=== PATIENT | female | born 1940 | race Caucasian/White ===

== ENCOUNTER 2024-05-06 12:21 | Inpatient (IN) | payer MEDICARE, BC, SELFPAY ==
[2024-05-03 17:43] VITALS: BP 116/51
[2024-05-03] MEDS: TYLENOL SUSPENSION 650 MG PO (17:52)
[2024-05-03 18:09] LABS: % Basophils 0.2 % (0-2); % Immature Granulocytes 0.6 % (0-0.5); % Lymphocytes 5.7 % (20.5-51.1); % Monocytes 4.7 % (1.7-9.3); % Neutrophils 88.8 % (42.2-75.2); Absolute Immature Granulocytes 0.1 10^3/uL (0-0.05); Absolute Lymphocytes 0.6 10^3/uL (1.2-3.4); Absolute Monocytes 0.5 10^3/uL (0.1-0.6); Absolute Neutrophils 8.9 10^3/uL (1.4-6.5); Hematocrit 37.4 % (37.0-47.0); Mean Corp Hgb Conc. 32.1 g/dL (33.0-37.0); Mean Corpuscular Hgb 29.1 pg (27.0-31.0); Mean Corpuscular Volume 90.6 fL (81.0-99.0); Mean Platelet Volume 10.4 fL (7.4-10.4); Nucleated Red Blood Cells % 0 %; Platelet Count 211 10^3/uL (130-400); Red Blood Cell Count 4.13 10^6/uL (4.20-5.40); Red Cell Dist. Width 13.5 % (11.5-14.5)
[2024-05-03 18:24] LABS: ALT (SGPT) 21 U/L (0-35); AST (SGOT) 33 U/L (14-36); Alkaline Phosphatase 62 U/L (38-126); Blood Urea Nitrogen 24 mg/dl (7-17); Calcium 9.3 mg/dl (8.4-10.2); Carbon Dioxide 26 mmol/L (22-30); Chloride 102 mmol/L (98-107); Glucose 152 mg/dl (70-99); Potassium 4.8 mmol/L (3.5-5.1); Sodium 137 mmol/L (135-145); Total Bilirubin 0.5 mg/dl (0.2-1.3); Total Protein 6.8 g/dl (6.3-8.2); eGFR > 60.00
[2024-05-03 18:36] LABS: COVID-19 Antigen Negative (Negative)
[2024-05-03 20:29] VITALS: BP 107/52
--- NOTE | 2024-05-03 20:49 | ED.GENMED ---
History of Present Illness
General
Chief Complaint: Fever
Source: family (Daughter)
Exam Limitations: dementia
Time Seen by Provider: 05/03/24 20:22
Nursing documentation reviewed up to this point in time: agreed with
History of Present Illness
History of Present Illness:
83-year-old female presents to the emergency department due to runny nose and fever for the past 3 days. She is less active. She was not given any Motrin or Tylenol. Her daughter brings her in and giving the history. She lives at [facility]
dementia care. They went to [facility] but the line was too long, so they came to this hospital. She has never been to [facility].
Past History
Past History
ED Past Medical History: Arrthythmia and Other (Dementia)
ED Past Surgical History: Cardiac (Pacemaker) and Other (Bilateral mastectomy)
Social History
Tobacco: Non-smoker
Alcohol: None
Drug: None
Living: long term
Review of Systems
Review of Systems
Allergies reviewed?: Yes
All Other Systems: Not applicable
Constitutional: Reports fever
EENT: Reports runny nose
Respiratory: Reports cough
Cardiac: Reports no symptoms
ABD/GI: Reports no symptoms
: Reports no symptoms
Musculoskeletal: Reports no symptoms
Skin: Reports no symptoms
Neurological: Reports no symptoms
Endocrine: Reports no symptoms
Hematologic/Lymphatic: Reports no symptoms
Phy Exam
Physical Exam
Physical Exam:
Physical Exam
General: Nonverbal, fever 101.5
Neck: supple. no meningeal signs. normal posterior pharynx
Heart: s1/s2 regular rate and rhythm, no murmur. equal radial
pulses.
HEENT: Pupils equal round reactive to light, EOMI
Lungs: no acute respiratory distress. clear bilaterally
Abdomen: normal bowel sounds. not tender. no CVAT
Neuro: alert but nonverbal. no focal neurological deficits cranial nerves II through XII intact
Skin: no rash
Psychiatric: well kept. interactive and cooperative
Extremities: no edema. no calf tenderness. negative homans. good distal pulses
Course
Orders/Labs/Results
Orders:
Orders
05/03/24 Dinner
Regular
At Your Request: Limited Participation
Does patient need a safe tray?: No
05/03/24 17:52
Acetaminophen [Tylenol Suspension] 650 mg PO NOW STA
05/03/24 18:02
COVID-19 Antigen Urgent
Source: Nasal Swab
Complete Blood Count/With Diff Urgent
Comprehensive Metabolic Panel Urgent
Influenza A+B Rapid Molecular Urgent
HUNTER Source: Nasal Swab
Specimen Description:
05/03/24 18:54
Influenza A+B Rapid Molecular Routine
HUNTER Source: NSWAB
Specimen Description:
05/03/24 20:24
CR Chest - 2 Views Urgent
Comment:
Reason For Exam: fever, cough
05/03/24 20:35
Influenza A+B Rapid Molecular Urgent
HUNTER Source: Nasal Swab
Specimen Description:
05/03/24 20:42
Straight cath- Treatment ONCE
05/03/24 20:48
Lactic Acid Q4H
Comment: CANCEL 2nd LACTIC ACID IF 1st LACTIC ACID IS LESS THAN 2
Blood Culture Q30M
HUNTER Source: Blood/Venous
Specimen Description:
05/03/24 20:59
Urinalysis Reflex To Culture Urgent
Date Specimen was Collected: 05/03/24
Time Specimen was Collected: 20:58
Urine Microscopic Reflex Cult Urgent
Urine Culture Urgent
HUNTER Source: U
Specimen Description:
Date Specimen was Collected: 05/03/24
Time Specimen was Collected: 20:58
05/03/24 21:29
0.9% Sodium Chloride 1000 ml [Nss] 1,000 ml IV BOLUS
05/03/24 22:38
Admit/Transfer Patient As Directed
Co-Sign Provider:
Level of Care: Observation services
Assign to:: Telemetry
Physician / Group: antonio
Diagnosis: viral uri
Reason for Telemetry: Arrhythmia
Date to Stop Telemetry: 05/06/24
Time to Stop Telemetry: 11:00
Code Status As Directed
Resuscitation Status: Do not resuscitate
Reached after discussion with pt or family/Healthcare POA: Yes
DNR Bracelet Application ONCE
PRN Pain Medication Management As Directed
May give lesser potent ordered pain med per pt: Yes
preference::
Protocol:: Medication orders for pain may be administered in a
manner that supports deferring to patient preference
when the pt is:
- Requesting an ordered lesser potent pain medication.
Least to most potent pain medications are defined
as: acetaminophen < NSAID < tramadol < opioids
(morphine, oxycodone, hydromorphone).
- Requesting a lesser dose of the same medication IF
ORDERED.
- Requesting a less intrusive route of administration
if both routes are prescribed by the provider (PO <
IV).
05/03/24 23:04
Blood Culture Q30M
HUNTER Source: Blood/Venous
Specimen Description:
05/03/24 23:58
0.9% Sodium Chloride 1000 ml [Nss] 1,000 ml IV 70 mls/hr
Acetaminophen [Tylenol] 650 mg PO Q4HPRN PRN
Ketorolac [Toradol] 10 mg IV Q6HPRN PRN
05/03/24 23:58
Activity As Directed
Activity Level: As Tolerated
Vital Signs As Directed
Frequency: Per unit guidelines
DX Deep Vein Thrombosis Video Routine
05/04/24 00:58
Lactic Acid Q4H
Comment: CANCEL 2nd LACTIC ACID IF 1st LACTIC ACID IS LESS THAN 2
05/04/24 06:00
Complete Blood Count/With Diff IN AM
Comprehensive Metabolic Panel IN AM
05/04/24 08:00
Heparin 5,000 units SC Q12
05/06/24 11:00
DC Protocol for Telemetry ONCE
Abnormal Lab Results
05/03/24 05/03/24 05/03/24
18:02 20:48 20:59
RBC 4.13 L 10^6/uL
(4.20-5.40)
MCHC 32.1 L g/dL
(33.0-37.0)
Abs Immat Gran (auto) 0.1 H 10^3/uL
(0-0.05)
Absolute Neuts (auto) 8.9 H 10^3/uL
(1.4-6.5)
Absolute Lymphs (auto) 0.6 L 10^3/uL
(1.2-3.4)
Immature Gran % 0.6 H %
(0-0.5)
Neutrophils % 88.8 H %
(42.2-75.2)
Lymphocytes % 5.7 L %
(20.5-51.1)
BUN 24 H mg/dl
(7-17)
Glucose 152 H mg/dl
(70-99)
Lactic Acid 2.1 H mmol/L
(0.7-2.0)
Urine Ketones Trace A
(Negative)
Ur Occult Blood Reflex 1+ A
(Negative)
Leukocyte Esterase Rfl Trace A
(Negative)
Urine Bacteria (Reflex) Many A
(Negative)
Urine Albumin (Reflex) 1+ A
(Neg - Trace)
05/03/24 18:02
05/03/24 18:02
Vital Signs
Initial and Last Documented VS:
Initial Vital Signs
Temp Pulse Resp BP Pulse Ox
101.5 F H 57 16 116/51 95
05/03/24 17:43 05/03/24 17:43 05/03/24 17:43 05/03/24 17:43 05/03/24 17:43
Last Documented Vital Signs
Temp Pulse Resp BP Pulse Ox
97.7 F 60 12 130/42 96
05/04/24 00:13 05/04/24 00:13 05/04/24 00:13 05/04/24 00:13 05/04/24 00:13
MDM/Problems Addressed
Differential Diagnosis Includes:
Pneumonia, UTI
MDM/Problems Addressed:
83-year-old female with fever, unclear etiology. Mild elevation in lactic acid. IV fluids given. Admit to hospitalist blood cultures pending.
Chronic conditions affecting care: Other (Dementia)
*Radiology
Radiology exam reviewed: preliminary read by ED provider (Chest x-ray no acute findings)
*Pulse Oximetry
Patient hypoxic: no
*Critical Care Note
Total Time (30-74mins, 75-104mins- exclusive of procedures): Not Applicable
Patient Management
Social determinants of health affecting care: Living situation and Strong social support
Discussion with other providers: Hospitalist
Escalation/DeEscalation of care consider admission/obs:
Admission indicated
ED Attending Note
-
Portions of this chart may have been created with voice recognition software.� Occasional wrong word or��sound alike� substitutions may have occurred due to the inherent limitations of voice recognition software.
Discharge Plan
Departure
Patient Disposition: Admit
Date of Disposition: 05/03/24
Time of Disposition: 22:17
Admit to: Telemetry
Presentation/result/management discussed w/ accepting MD/DO: Hospitalist
Patient with high blood pressure during this ER visit?: Yes
Condition: Fair
Covid-19: Negative COVID-19
Discharge Problem:
Fever
Interventions
Interventions:
*Risk Screen - Suicide Last Done: 05/04/24 00:11
*General Assessment Last Done: 05/03/24 21:03
*Neglect/Abuse Screening Last Done: 05/03/24 17:43
ED- Fall Risk Assessment Last Done: 05/03/24 21:03
*ED COVID-19 Vaccine History Last Done: 05/03/24 21:03
*Nursing Disposition Last Done: 05/03/24 23:38
ED- Neurological Assessment Last Done: 05/03/24 21:03
ED-Skin Assessment Last Done: 05/03/24 21:03
Discharge Date and Time
Discharge Date/Time: 05/03/24 23:38
[2024-05-03 21:00] VITALS: BP 90/47; BMI 19.0
[2024-05-03 21:07] LABS: Urine Albumin 1+ (Neg - Trace); Urine Bilirubin Negative (Negative); Urine Character Clear (Clear); Urine Color Yellow; Urine Glucose Negative (Negative); Urine Ketone Trace (Negative); Urine Leukocyte Trace (Negative); Urine Nitrite Negative (Negative); Urine Occult Blood 1+ (Negative); Urine Urobilinogen Negative (Neg - 1+)
[2024-05-03 21:10] LABS: Lactic Acid 2.1 mmol/L (0.7-2.0)
[2024-05-03 21:31] LABS: Urine Bacteria Many (Negative); Urine Red Blood Cell 0-2 /HPF (0-2)
[2024-05-03] MEDS: NSS 1000 IV (21:35)
[2024-05-03 21:39] VITALS: BP 97/71
[2024-05-03 22:00] VITALS: BP 103/54
--- NOTE | 2024-05-03 22:40 | HPS.HSE ---
Addendum entered and electronically signed by Natasha Pal MD 05/03/24 23:31:
Started empiric Ceftriaxone/Doxycycline to cover community acquired pneumonia given persistent fever.
Original Note:
Family Physician
-
Family Physician: Major Do
Chief Complaint
-
fever
History of Present Illness
83-year-old female past medical history of advanced dementia, breast cancer status post double mastectomy, bradycardia, orthostatic hypotension, pacemaker, presenting from [facility] presenting with runny nose and fever, slight cough,
weakness for the past 4 days. She has been less active and eating less. They went to [facility] but the line was too long so they came here. History obtained from daughter.
No nausea or vomiting or diarrhea or abdominal pain or urinary symptoms.
Patient cannot speak much at baseline due to advanced dementia.
She does not smoke or drink alcohol.
Medical History
Past Medical History
Past Medical History: Reports Other (advanced dementia, breast cancer status post double mastectomy, bradycardia, orthostatic hypotension, pacemaker,)
Past Surgical History: Reports Other (pacemaker, double mastectomy )
Social History
Tobacco: Non-smoker
Alcohol: None
Drug: None
Family History
Family History: Not pertinent
Allergies / Home Medications
Allergies reflects when Allergies were last updated in [facility].
Home Medications with original date entered in [facility]
Allergy/Medication List:
Allergies
Allergy/AdvReac Type Severity Reaction Status Date / Time
shellfish derived Allergy Unknown Verified 05/03/24 17:49
Sulfa (Sulfonamide Allergy Rash Verified 05/03/24 17:48
Antibiotics)
Review of Systems
-
History Source: Patient
A 12 point ROS was completed and negative except as noted: Yes
Constitutional: Reports No Symptoms
EENT: Reports See HPI
Respiratory: Reports See HPI
Cardiac: Reports No Symptoms
Abdomen/GI: Reports No Symptoms
: Reports No Symptoms
Musculoskeletal: Reports No Symptoms
Skin: Reports No Symptoms
Neurological: Reports No Symptoms
Endocrine: Reports No Symptoms
Hematologic/Lymphatic: Reports No Symptoms
Psych: Reports No Symptoms
Physical Exam
Vital Signs
Vital Signs
Temp Pulse Resp BP Pulse Ox
101.5 F H 57 15 103/54 93
05/03/24 17:43 05/03/24 22:15 05/03/24 22:15 05/03/24 22:00 05/03/24 22:15
Physical Exam
General: Well Developed, Well Nourished and No Apparent Distress
HEENT: NormoCephalic, Moist mucous membranes and Atraumatic
Respiratory: Clear
Cardiac: S1/S2 and Regular Rhythm; No Murmur or Rub
GI: Soft, Non Tender, Non Distended and Normal Bowel Sounds; No Organomegaly
Rectal: Deferred by Provider
Musculoskeletal: No Clubbing, No Cyanosis and No Edema
Skin: No Rash
Neuro: Nonfocal/grossly intact
Laboratory Results
-
05/03/24 18:02
05/03/24 18:02
Laboratory Results
Lactic Acid 2.1 mmol/L (0.7-2.0) H 05/03/24 20:48
Total Bilirubin 0.5 mg/dl (0.2-1.3) 05/03/24 18:02
AST 33 U/L (14-36) 05/03/24 18:02
ALT 21 U/L (0-35) 05/03/24 18:02
Alkaline Phosphatase 62 U/L (38-126) 05/03/24 18:02
Data Reviewed
-
Lab Data: Labs Reviewed by me
Old Records: Reviewed
Impression/Plan
-
IMPRESSION:
PLAN:
# Viral URI
-Fever but not septic although blood pressure down to 90s at times
-COVID and influenza negative
-Chest x-ray appears unremarkable, report pending
-Urinalysis unremarkable
-Check blood cultures
-IV fluids
-Tylenol, Toradol for fever
Advance dementia
History of bradycardia with pacemaker
History of orthostatic hypotension
Breast cancer status post double mastectomy
DNR/DNI
DVT prophylaxis�heparin
Regular diet
[2024-05-03 23:00] VITALS: BP 104/55
--- NOTE | 2024-05-03 23:45 | TRANSFER ---
pt arrived from ED via stretcher accompanied by ED staff. pt was a pullover from stretcher to bed. pt is nonverbal at baseline. VSS. pt made comfortable, bed alarm placed, call galvan within reach. will continue to monitor.
[2024-05-04] VITALS (7 sets, daily range): BP systolic 97–166; BP diastolic 42–83; BMI 18.7
[2024-05-04] MEDS: NSS 1000 IV ×2 (00:54→14:52)
[2024-05-04] MEDS: ROCEPHIN 1000 MG IV ×2 (01:27→23:09)
[2024-05-04] MEDS: VIBRAMYCIN 260 MG IV ×2 (01:28→14:48)
[2024-05-04] MEDS: STERILE WATER FOR INJECTION 10 ML IV ×2 (01:28→23:10)
[2024-05-04 01:55] LABS: Lactic Acid 1.5 mmol/L (0.7-2.0)
[2024-05-04 07:07] LABS: % Basophils 0.4 % (0-2); % Immature Granulocytes 0.4 % (0-0.5); % Lymphocytes 19.1 % (20.5-51.1); % Monocytes 7.8 % (1.7-9.3); % Neutrophils 72.3 % (42.2-75.2); Absolute Lymphocytes 1.5 10^3/uL (1.2-3.4); Absolute Monocytes 0.6 10^3/uL (0.1-0.6); Absolute Neutrophils 5.6 10^3/uL (1.4-6.5); Hematocrit 35.8 % (37.0-47.0); Hemoglobin 11.6 g/dL (12.0-16.0); Mean Corp Hgb Conc. 32.4 g/dL (33.0-37.0); Mean Corpuscular Hgb 28.9 pg (27.0-31.0); Mean Corpuscular Volume 89.1 fL (81.0-99.0); Mean Platelet Volume 10.1 fL (7.4-10.4); Nucleated Red Blood Cells % 0 %; Platelet Count 166 10^3/uL (130-400); Red Blood Cell Count 4.02 10^6/uL (4.20-5.40); Red Cell Dist. Width 13.5 % (11.5-14.5); White Blood Cell Count 7.7 10^3/uL (4.8-10.8)
[2024-05-04 07:10] LABS: ALT (SGPT) 22 U/L (0-35); AST (SGOT) 45 U/L (14-36); Albumin 3.5 g/dl (3.5-5.0); Alkaline Phosphatase 54 U/L (38-126); Blood Urea Nitrogen 21 mg/dl (7-17); Calcium 8.9 mg/dl (8.4-10.2); Carbon Dioxide 23 mmol/L (22-30); Chloride 109 mmol/L (98-107); Estimated Creatinine Clearance 53 ml/min; Glucose 103 mg/dl (70-99); Potassium 4.8 mmol/L (3.5-5.1); Sodium 141 mmol/L (135-145); Total Bilirubin 0.4 mg/dl (0.2-1.3); Total Protein 6.4 g/dl (6.3-8.2); eGFR > 60.00
[2024-05-04] MEDS: HEPARIN 5000 UNITS SC ×2 (09:45→22:01)
--- NOTE | 2024-05-04 12:10 | CM ---
CM following re: discharge planning.
Reviewed pt's chart, met with pt and spoke to pt's daughter Charley.
Pt is an 83 year old female, admitted with OBS status and primary dx of Viral URI. Pt is not a great historian, OBS status explained to pt's daughter, both OBS letter and Ferrer letter placed on chart, daughter has a copy.
Per daughter, pt has been a resident of [facility] for the past 2 years, has 3 supportive children. per daughter, pt mostly ambulates with a walker at her facility, has a wheelchair and uses when tired. Pt's daughter
requested pt goes to a SNF prior returning back to [facility].
PT and OT will evaluate the pt to determine a level of care at discharge.
D/C plan: preferred SNF. daughter Charley stated she will let CM know her preferences.
CM will follow with discharge plan updates as hospitalization progresses
--- NOTE | 2024-05-04 12:36 | W.PN.HOSP.TC ---
Today's Communication/Plan
-
Add on procalcitonin
Low threshold to DC antibiotics if procalcitonin low
Follow blood cultures, CBC and temperature curve
Assessment / Plan
Assessment / Plan
#Fever
#Suspected viral URI
-Presented from nursing facility with fever; mention to have URI symptoms; flu and COVID testing negative
-Noted to have reduced oral intake recently as well; 101.5 �F in ED
-No leukocytosis; did not meet SIRS criteria, low suspicion for sepsis
-Chest x-ray unremarkable, UA was without signs of infection
-Blood cultures were taken, CTX and doxycycline started for persistent fever
-Will continue empiric antibiotics for now, add on Pro-Issa, low threshold to DC
-Order RSV, continue to trend CBC and temperature curve
-Follow blood cultures
#Lethargy/TME
-Suspect that this is secondary to underlying infection as above
-Continue to monitor MSE for improvement
-Unclear what her mental baseline is
#Advanced dementia
-Presented from dementia unit; unclear what mental baseline is
#H/O bradycardia s/p PPM
#H/O orthostatic hypotension
#H/O breast cancer s/p double mastectomy
DVT prophylaxis: Subcutaneous heparin
Diet: Regular
CODE STATUS: DNR
Anticipated Discharge: 24 - 48 hours
Subjective/Interval History
-
Date of Service: May 04, 2024
Seen and examined at the bedside. No acute events reported overnight. AFVSS this morning
ROS and supplemental history limited from advanced dementia
Objective Data
-
Labs:
Laboratory Results
05/04/24
05:48
WBC 7.7
Hgb 11.6 L
Hct 35.8 L
Plt Count 166 D
Sodium 141
Potassium 4.8
Chloride 109 H
Carbon Dioxide 23
BUN 21 H
Creatinine 0.6
Glucose 103 H
Calcium 8.9
Total Bilirubin 0.4
AST 45 H
ALT 22
Alkaline Phosphatase 54
Vital Signs:
Vital Signs
Temp Pulse Resp BP Pulse Ox
100 F 110 18 166/83 97
05/04/24 11:51 05/04/24 11:51 05/04/24 11:51 05/04/24 11:51 05/04/24 11:51
I&O
05/03/24 05/04/24 05/05/24
06:59 06:59 06:59
Intake Total 670 / 670
Balance 670 / 670
Review of Systems
-
Unable to obtain full review of systems at this time due to: Dementia
Physical Exam
-
General: Well Developed, No Apparent Distress, Comfortable and Cachectic
HEENT: Normocephalic, Atraumatic, Moist Mucous Membranes and Anicteric
Respiratory: Clear to Auscultation and Non Labored Respirations
Cardiac: Regular Rhythm and S1/S2; Negative Murmur, Rub or Gallop
GI: Soft, Nontender, Nondistended and Normal Bowel Sounds
Musculoskeletal: No Clubbing, No Cyanosis and No Edema
Skin: Warm and Dry; Negative Rash
Neuro: Nonfocal/Grossly Intact and Other (Lethargic)
Hematologic / Lymphatic: No Lymphadenopathy
Psych: Calm
Data Reviewed
-
Labs: Labs Reviewed by me
[2024-05-04 13:22] LABS: Procalcitonin 0.78 ng/ml (0.0-0.25)
--- NOTE | 2024-05-04 20:13 | PTCARENOTE ---
Received patient this am AAOx1. Pt nonverbal at baseline. Appetite poor patient needs to be fed. Pt turned an repositioned Q 2 hours. IVF infusing without difficulty. Made patient comfortable. Cont to assess patient status.
--- NOTE | 2024-05-04 22:48 | PTCARENOTE ---
pt transferred to [id number] with all belongings
[2024-05-05] MEDS: VIBRAMYCIN 260 MG IV ×2 (02:10→13:03)
[2024-05-05 02:35] VITALS: BP 136/59
--- NOTE | 2024-05-05 04:09 | W.PN.UPDATE ---
Update Note
Progress Note Update
Critical lab reported, RSV positive. Patient moved to private room. VSS, 95% on room air. Continue supportive care.
[2024-05-05] MEDS: NSS 1000 IV (05:09)
[2024-05-05 07:38] VITALS: BP 121/57
[2024-05-05] MEDS: HEPARIN 5000 UNITS SC (08:54)
[2024-05-05 08:57] LABS: Hematocrit 31.9 % (37.0-47.0); Hemoglobin 10.1 g/dL (12.0-16.0); Mean Corp Hgb Conc. 31.7 g/dL (33.0-37.0); Mean Corpuscular Hgb 28.9 pg (27.0-31.0); Mean Corpuscular Volume 91.4 fL (81.0-99.0); Mean Platelet Volume 11.3 fL (7.4-10.4); Platelet Count 162 10^3/uL (130-400); Red Blood Cell Count 3.49 10^6/uL (4.20-5.40); Red Cell Dist. Width 13.8 % (11.5-14.5); White Blood Cell Count 5.3 10^3/uL (4.8-10.8)
--- NOTE | 2024-05-05 09:17 | W.PN.HOSP.TC ---
Today's Communication/Plan
-
see bold
Assessment / Plan
Assessment / Plan
#Fever
#Acute RSV upper respiratory infection
-Presented from nursing facility with fever; mention to have URI symptoms; flu and COVID testing negative
-Noted to have reduced oral intake recently as well; 101.5 �F in ED
-No leukocytosis; did not meet SIRS criteria, low suspicion for sepsis
-Chest x-ray unremarkable, UA was without signs of infection
-Procalcitonin elevated at 0.78, continue Rocephin/doxycycline for superinfection coverage
-Continue supportive care
#Lethargy/TME
-Suspect that this is secondary to underlying infection as above
-Continue to monitor MSE for improvement
-Unclear what her mental baseline is
#Advanced dementia
-Presented from dementia unit; unclear what mental baseline is
-Eats a pur�ed diet, consult SPL
#H/O bradycardia s/p PPM
#H/O orthostatic hypotension
#H/O breast cancer s/p double mastectomy
DVT prophylaxis�subcu Lovenox
DNR
Total time spent to see the patient on the floor, examine the patient, review data and lab results, discuss treatment plan with patient, nursing staff around 40 minutes.
Physical Exam
General: No acute distress
HEENT: Normocephalic, Atraumatic, EOMI, MMM
Respiratory: Clear to Auscultation bilaterally
Cardiac: Normal S1/S2, Regular Rate and Rhythm
GI: Soft, Nontender, Nondistended, Normal Bowel Sounds
Extremities: No Clubbing, Cyanosis, or Edema
Neuro: Pleasantly confused
Psych: Calm, Cooperative
Anticipated Discharge: 24 - 48 hours
Subjective/Interval History
-
Date of Service: May 05, 2024
Patient not answering questions. Nursing staff reports she is not eating much. No fever, no vomiting.
Objective Data
-
Labs:
Laboratory Results
05/05/24
07:32
WBC 5.3
Hgb 10.1 L
Hct 31.9 L
Plt Count 162
Sodium Pending
Potassium Pending
Chloride Pending
Carbon Dioxide Pending
BUN Pending
Creatinine Pending
Glucose Pending
Calcium Pending
Vital Signs:
Vital Signs
Temp Pulse Resp BP Pulse Ox
98.4 F 53 20 121/57 96
05/05/24 07:38 05/05/24 07:38 05/05/24 07:38 05/05/24 07:38 05/05/24 07:38
I&O
05/04/24 05/05/24 05/06/24
06:59 06:59 06:59
Intake Total 670 / 670 2059
Balance 670 / 670 2059
[2024-05-05 09:25] LABS: Blood Urea Nitrogen 22 mg/dl (7-17); Calcium 8.4 mg/dl (8.4-10.2); Carbon Dioxide 21 mmol/L (22-30); Chloride 112 mmol/L (98-107); Estimated Creatinine Clearance 53 ml/min; Glucose 89 mg/dl (70-99); Potassium 3.6 mmol/L (3.5-5.1); Sodium 141 mmol/L (135-145); eGFR > 60.00
[2024-05-05 09:50] LABS: % Basophils 0.2 % (0-2); % Immature Granulocytes 0.4 % (0-0.5); % Lymphocytes 28.4 % (20.5-51.1); % Monocytes 11.1 % (1.7-9.3); % Neutrophils 59.9 % (42.2-75.2); Absolute Lymphocytes 1.5 10^3/uL (1.2-3.4); Absolute Monocytes 0.6 10^3/uL (0.1-0.6); Absolute Neutrophils 3.2 10^3/uL (1.4-6.5); Nucleated Red Blood Cells % 0 %
[2024-05-05 11:09] VITALS: BP 114/57
[2024-05-05 11:40] VITALS: BMI 18.7
[2024-05-05] MEDS: 0.45% NACL with KCL 20 MEQ 1000 IV (11:42)
--- NOTE | 2024-05-05 12:26 | CM ---
CM reviewed chart, patient positive for RSV. Patient resides at [facility], per previous CM note, daughter would like patient to discharge to SNF. PT attempted to meet with patient, patient not following director/lethargic, PT eval
held. CM will continue to follow for all discharge planning needs, will need PT/OT for SNF/insurance authorizations when able.
Plan; PT/OT to evaluation patient when able-SNF once facility found, will need insurance authorization
[2024-05-05 15:23] VITALS: BP 114/77
[2024-05-05] MEDS: LOVENOX 40 MG SC (17:02)
[2024-05-05 19:08] VITALS: BP 127/97
[2024-05-05 23:25] VITALS: BP 122/92
[2024-05-05] MEDS: STERILE WATER FOR INJECTION 10 ML IV (23:27)
[2024-05-05] MEDS: ROCEPHIN 1000 MG IV (23:27)
[2024-05-06] MEDS: VIBRAMYCIN 260 MG IV ×2 (01:05→14:37)
[2024-05-06 03:52] VITALS: BP 135/61
[2024-05-06] MEDS: 0.45% NACL with KCL 20 MEQ 1000 IV (06:04)
[2024-05-06 07:20] VITALS: BP 104/61
--- NOTE | 2024-05-06 09:04 | W.PN.HOSP.TC ---
Today's Communication/Plan
-
see bold
Assessment / Plan
Assessment / Plan
#Fever
#Acute RSV upper respiratory infection
-Presented from nursing facility with fever; mention to have URI symptoms; flu and COVID testing negative
-Noted to have reduced oral intake recently as well; 101.5 �F in ED
-No leukocytosis; did not meet SIRS criteria, low suspicion for sepsis
-Chest x-ray unremarkable, UA was without signs of infection
-Procalcitonin elevated at 0.78, continue Rocephin/doxycycline D3 for bacterial superinfection coverage
-Continue supportive care
Poor oral intake
-Continue IV fluids, encourage oral intake
#Lethargy/TME
-Suspect that this is secondary to underlying infection as above
-Continue to monitor MSE for improvement
-Unclear what her mental baseline is
#Advanced dementia
-Presented from dementia unit; unclear what mental baseline is
-Seen by SPL, who recommends pur�ed diet with thin liquids
#H/O bradycardia s/p PPM
#H/O orthostatic hypotension
#H/O breast cancer s/p double mastectomy
DVT prophylaxis�subcu Lovenox
DNR
Updated daughter on phone 05/05
Total time spent to see the patient on the floor, examine the patient, review data and lab results, discuss treatment plan with patient, nursing staff around 39 minutes.
Physical Exam
General: No acute distress
HEENT: Normocephalic, Atraumatic, EOMI, MMM
Respiratory: Clear to Auscultation bilaterally
Cardiac: Normal S1/S2, Regular Rate and Rhythm
GI: Soft, Nontender, Nondistended, Normal Bowel Sounds
Extremities: No Clubbing, Cyanosis, or Edema
Neuro: Pleasantly confused
Psych: Calm, Cooperative
Anticipated Discharge: 24 - 48 hours
Subjective/Interval History
-
Date of Service: May 06, 2024
Patient not answering questions. Her oral intake continues to be poor. No fever, no vomiting.
Objective Data
-
Vital Signs:
Vital Signs
Temp Pulse Resp BP Pulse Ox
98.7 F 53 20 104/61 96
05/06/24 07:20 05/06/24 07:20 05/06/24 07:20 05/06/24 07:20 05/06/24 07:20
I&O
05/05/24 05/06/24 05/07/24
06:59 06:59 06:59
Intake Total 2059 1520 / 1520
Balance 2059 1520 / 1520
--- NOTE | 2024-05-06 09:41 | PTOTSP ---
Speech Therapy Evaluation:
Pt exhibits clinical signs of oropharyngeal dysphagia, however suspect pt's swallow is likely at/near baseline given puree/thin liquid diet STORE CLERK CHECKER. Pt remains at increased risk of aspiration due to RSV symptoms contributing to increased
cough/congestion and decreased ability to implement safe swallowing strategies in the setting of advanced dementia. No s/sx of aspiration across PO trials. WBC WNL. CXR with no acute cardiopulmonary process.
Recommend:
1. Continue baseline diet of IDDSI Level 4 (puree) and thin liquids
2. Careful spoon feeding based on pt's cues
3. Medications crushed in puree
4. FULL assistance and supervision with PO intake
5. PALLIATIVE CARE COORDINATOR to follow - likely brief
[2024-05-06 11:57] VITALS: BP 110/76
[2024-05-06 15:00] VITALS: BP 122/69
--- NOTE | 2024-05-06 15:39 | CM ---
CM reviewed chart, PT attempted to see patient, patient resistant, unable to work with PT today. CM will continue to follow for all discharge planning needs.
Plan; SNF once patient able to work with PT, will need insurance authorization.
[2024-05-06] MEDS: LOVENOX 40 MG SC (17:46)
[2024-05-06 19:05] VITALS: BP 167/71
[2024-05-06] MEDS: STERILE WATER FOR INJECTION 10 ML IV (23:24)
[2024-05-06] MEDS: ROCEPHIN 1000 MG IV (23:24)
[2024-05-06 23:30] VITALS: BP 160/84
--- NOTE | 2024-05-07 00:05 | VATNOTE ---
05/07 0005
Paged by PCN due to swelling of patient's right hand. Patient with swelling to right wrist and hand and some redness at the site of her IV. IV removed and right hand/arm elevated. Patient confused and PCN does not think she will keep a warm
compress on her arm but he will try to keep it elevated. New IV started in left arm.
--- NOTE | 2024-05-07 02:13 | VATNOTE ---
05/07 209
Went to check on patients right hand/arm. Patient sleeping at the time with good cap refill and right radial pulse, right arm placed back on pillow for elevation. (PCN states he has done it a few times as well) VAT to follow in the morning.
[2024-05-07] MEDS: VIBRAMYCIN 260 MG IV ×2 (02:52→14:10)
[2024-05-07] MEDS: 0.45% NACL with KCL 20 MEQ 1000 IV ×2 (02:52→23:38)
[2024-05-07 03:15] VITALS: BP 146/63
[2024-05-07 05:21] LABS: % Basophils 0.2 % (0-2); % Eosinophils 0.4 % (0-6); % Immature Granulocytes 0.6 % (0-0.5); % Lymphocytes 25.9 % (20.5-51.1); % Monocytes 8.7 % (1.7-9.3); % Neutrophils 64.2 % (42.2-75.2); Absolute Immature Granulocytes 0.1 10^3/uL (0-0.05); Absolute Lymphocytes 2.2 10^3/uL (1.2-3.4); Absolute Monocytes 0.7 10^3/uL (0.1-0.6); Absolute Neutrophils 5.4 10^3/uL (1.4-6.5); Hematocrit 32.6 % (37.0-47.0); Mean Corp Hgb Conc. 33.7 g/dL (33.0-37.0); Mean Corpuscular Hgb 29.3 pg (27.0-31.0); Mean Corpuscular Volume 86.7 fL (81.0-99.0); Mean Platelet Volume 11.1 fL (7.4-10.4); Nucleated Red Blood Cells % 0 %; Platelet Count 176 10^3/uL (130-400); Red Blood Cell Count 3.76 10^6/uL (4.20-5.40); White Blood Cell Count 8.4 10^3/uL (4.8-10.8)
[2024-05-07 05:48] LABS: Blood Urea Nitrogen 15 mg/dl (7-17); Calcium 8.3 mg/dl (8.4-10.2); Carbon Dioxide 24 mmol/L (22-30); Chloride 107 mmol/L (98-107); Estimated Creatinine Clearance 53 ml/min; Glucose 103 mg/dl (70-99); Magnesium 1.6 mg/dl (1.6-2.3); Phosphorus 2.7 mg/dl (2.5-4.5); Potassium 3.4 mmol/L (3.5-5.1); Sodium 138 mmol/L (135-145); eGFR > 60.00
[2024-05-07 07:40] VITALS: BP 98/65
--- NOTE | 2024-05-07 08:08 | W.PN.HOSP.TC ---
Today's Communication/Plan
-
Discharge tomorrow
Assessment / Plan
Assessment / Plan
#Fever
#Acute RSV upper respiratory infection
-Presented from nursing facility with fever; mention to have URI symptoms; flu and COVID testing negative
-Noted to have reduced oral intake recently as well; 101.5 �F in ED
-No leukocytosis; did not meet SIRS criteria, low suspicion for sepsis
-Chest x-ray unremarkable, UA was without signs of infection
-Procalcitonin elevated at 0.78, continue Rocephin/doxycycline D4 for bacterial superinfection coverage
-Continue supportive care
-Plan for discharge back to her facility tomorrow
Poor oral intake
-Continue IV fluids, encourage oral intake
-Oral intake has improved, nursing staff reports patient is eating more than half of her meals
#Lethargy/TME
-Suspect that this is secondary to underlying infection as above
-Continue to monitor MSE for improvement
-Unclear what her mental baseline is
#Advanced dementia
-Presented from dementia unit; unclear what mental baseline is
-Seen by [facility], who recommends pur�ed diet with thin liquids
#Right hand edema
Right upper extremity Dopplers negative for DVT
#H/O bradycardia s/p PPM
#H/O orthostatic hypotension
#H/O breast cancer s/p double mastectomy
DVT prophylaxis�subcu Lovenox
DNR
Updated daughter on phone 05/07
Total time spent to see the patient on the floor, examine the patient, review data and lab results, discuss treatment plan with patient, nursing staff around 38 minutes.
Physical Exam
General: No acute distress
HEENT: Normocephalic, Atraumatic, EOMI, MMM
Respiratory: Clear to Auscultation bilaterally
Cardiac: Normal S1/S2, Regular Rate and Rhythm
GI: Soft, Nontender, Nondistended, Normal Bowel Sounds
Extremities: No Clubbing, Cyanosis, or Edema
Neuro: Pleasantly confused
Psych: Calm, Cooperative
Anticipated Discharge: Within 24 hours
Subjective/Interval History
-
Date of Service: May 07, 2024
Patient is more awake today. Nursing staff reports she is eating 50% of her meals. No fever, no vomiting.
Objective Data
-
Labs:
Laboratory Results
05/07/24
04:43
WBC 8.4
Hgb 11.0 L
Hct 32.6 L
Plt Count 176
Sodium 138
Potassium 3.4 L
Chloride 107
Carbon Dioxide 24
BUN 15
Creatinine 0.5 L
Glucose 103 H
Calcium 8.3 L
Vital Signs:
Vital Signs
Temp Pulse Resp BP Pulse Ox
97.5 F 56 14 146/63 94
05/07/24 03:15 05/07/24 03:15 05/07/24 03:15 05/07/24 03:15 05/07/24 03:15
I&O
05/06/24 05/07/24 05/08/24
06:59 06:59 06:59
Intake Total 1520 / 1520 450 / 450
Balance 1520 / 1520 450 / 450
[2024-05-07] MEDS: KLOR-CON 20 MEQ PO (09:43)
[2024-05-07 11:00] VITALS: BP 100/64
[2024-05-07 15:00] VITALS: BP 100/56
--- NOTE | 2024-05-07 15:30 | CM ---
Per attending, plan for possible dc tomorrow-return to facility. Referral sent to pt's facility [facility] via [facility] for consideration of return tomorrow with request to follow up with CM Office to identify who is covering on 05/08/24.
[2024-05-07] MEDS: LOVENOX 40 MG SC (18:00)
[2024-05-07 20:50] VITALS: BP 141/98
[2024-05-07 23:10] VITALS: BP 152/65
[2024-05-07] MEDS: STERILE WATER FOR INJECTION 10 ML IV (23:38)
[2024-05-07] MEDS: ROCEPHIN 1000 MG IV (23:38)
[2024-05-08] VITALS (7 sets, daily range): BP systolic 100–164; BP diastolic 60–73; PULSE 74; O2SAT 91
[2024-05-08] MEDS: VIBRAMYCIN 260 MG IV ×2 (02:52→13:32)
--- NOTE | 2024-05-08 08:10 | VATNOTE ---
Vat rounds: right hand +1 edema. resolving.Will continue to elevate on pillows.
--- NOTE | 2024-05-08 08:32 | W.PN.HOSP.TC ---
Today's Communication/Plan
-
Consult hospice
Assessment / Plan
Assessment / Plan
#Fever
#Acute RSV upper respiratory infection
-Presented from nursing facility with fever; mention to have URI symptoms; flu and COVID testing negative
-Noted to have reduced oral intake recently as well; 101.5 �F in ED
-No leukocytosis; did not meet SIRS criteria, low suspicion for sepsis
-Chest x-ray unremarkable, UA was without signs of infection
-Procalcitonin elevated at 0.78, continue Rocephin/doxycycline D5 for bacterial superinfection coverage
-Continue supportive care
-Plan for discharge back to her facility tomorrow
Poor oral intake
-Continue IV fluids, encourage oral intake
-Oral intake has improved, nursing staff reports patient is eating more than half of her meals
#Lethargy/TME
-Suspect that this is secondary to underlying infection as above
-Continue to monitor MSE for improvement
-Unclear what her mental baseline is
#Advanced dementia
-Presented from dementia unit; unclear what mental baseline is
-Seen by [facility], who recommends pur�ed diet with thin liquids
-Consult hospice
#Right hand edema
Right upper extremity Dopplers negative for DVT
#H/O bradycardia s/p PPM
#H/O orthostatic hypotension
#H/O breast cancer s/p double mastectomy
DVT prophylaxis�subcu Lovenox
DNR
Updated daughter on phone 05/07
Total time spent to see the patient on the floor, examine the patient, review data and lab results, discuss treatment plan with patient, nursing staff around 40 minutes.
Physical Exam
General: No acute distress
HEENT: Normocephalic, Atraumatic, EOMI, MMM
Respiratory: Clear to Auscultation bilaterally
Cardiac: Normal S1/S2, Regular Rate and Rhythm
GI: Soft, Nontender, Nondistended, Normal Bowel Sounds
Extremities: No Clubbing, Cyanosis, or Edema
Neuro: Pleasantly confused
Psych: Calm, Cooperative
Anticipated Discharge: Within 24 hours
Subjective/Interval History
-
Date of Service: May 08, 2024
Nursing staff reports patient is eating 50% of her meals. She opens her eyes, appears comfortable. No fever, no vomiting.
Objective Data
-
Vital Signs:
Vital Signs
Temp Pulse Resp BP Pulse Ox
97.5 F 53 14 164/73 98
05/08/24 03:40 05/08/24 03:40 05/08/24 03:40 05/08/24 03:40 05/08/24 03:40
I&O
05/07/24 05/08/24 05/09/24
06:59 06:59 06:59
Intake Total 450 / 450 100 / 100
Balance 450 / 450 100 / 100
--- NOTE | 2024-05-08 10:14 | CM ---
Addendum entered by Tami Delaney 05/08/24 16:24:
CM reviewed with daughter, requesting patient return to facility with [facility]. BETH spoke with Britt Figueroa ([phone]) Director of Memory Care, provided contact for Dane with [facility] [phone]. BETH spoke with Dane Vela
reports typically do not do in hospital evaluations, requesting clinicals faxed to [phone] to determine if patient is hospice appropriate.
Plan; return to [facility] with [facility], pending Hospice acceptance.
Addendum entered by Tami Delaney 05/08/24 14:59:
Call placed to patients daughter for update regarding return to [facility], voicemail left.
Addendum entered by Tami Delaney 05/08/24 11:15:
CM received voicemail from DIPIKA Mc at [facility], reviewed with nursing, unable to accept patient back at current status, would require patient to be an assist of one to accept back, reports patient is below her baseline. CM spoke with
patients brother and sister on three way call, daughter will call facility, family not agreeable at this time for patient to discharge to rehab.
Original Note:
CM reviewed chart, placed call to [facility] and spoke with DIPIKA Mc ([phone]). Per Alexandro, reports patient is not currently getting therapy but will work with team reasonably well. CM discussed therapy has been attempting to evaluate
patient, patient was somewhat resistant. CM will fax clinicals to Alexandro once PT evaluations are in (fax: [phone]). CM placed call to patients daughter, Charley. CM discussed PT recommending SNF vs return to facility. Charley reports her mother is
likely at her baseline, does not ambulate typically and is mostly in her wheelchair. Charley unsure what SNF would do for patient, would like patient to return to facility to be with her . Charley reports both of her parents have dementia and do
better when they are together. CM reviewed IMM with daughter Charley over the phone. Charley reports she is working from 11-7, brother can be contacted if needed. CM will continue to follow for all discharge planning needs.
Plan; return to [facility], pending acceptance back.
[2024-05-08] MEDS: 0.45% NACL with KCL 20 MEQ 1000 IV (17:16)
[2024-05-08] MEDS: LOVENOX 40 MG SC (17:16)
[2024-05-08] MEDS: ROCEPHIN 1000 MG IV (23:39)
[2024-05-08] MEDS: STERILE WATER FOR INJECTION 10 ML IV (23:40)
[2024-05-09] MEDS: VIBRAMYCIN 260 MG IV ×2 (01:56→13:29)
[2024-05-09] MEDS: 0.45% NACL with KCL 20 MEQ 1000 IV (02:01)
[2024-05-09 07:10] VITALS: BP 131/56
--- NOTE | 2024-05-09 08:36 | W.PN.HOSP.TC ---
Today's Communication/Plan
-
Discharge back to facility under hospice on Sunday
Assessment / Plan
Assessment / Plan
#Fever
#Acute RSV upper respiratory infection
-Presented from nursing facility with fever; mention to have URI symptoms; flu and COVID testing negative
-Noted to have reduced oral intake recently as well; 101.5 �F in ED
-No leukocytosis; did not meet SIRS criteria, low suspicion for sepsis
-Chest x-ray unremarkable, UA was without signs of infection
-Procalcitonin elevated at 0.78, s/p Rocephin/doxycycline x 5 days for bacterial superinfection coverage
-Continue supportive care
-Discharge back to facility under hospice on Sunday. They do not have the staff to take her back over the weekend.
#Possible urinary tract infection
05/03/2024 urine culture growing greater than 100,000 colonies of E. coli, pansensitive
Covered with antibiotics as above
Poor oral intake
-Oral intake has improved, nursing staff reports patient is eating more than half of her meals
#Lethargy/TME
-Suspect that this is secondary to underlying infection as above
-Continue to monitor MSE for improvement
-Unclear what her mental baseline is
#Advanced dementia
-Presented from dementia unit; unclear what mental baseline is
-Seen by [facility], who recommends pur�ed diet with thin liquids
-Hospice consulted. Discharge back to facility under hospice on Sunday.
#Right hand edema
Right upper extremity Dopplers negative for DVT
#H/O bradycardia s/p PPM
#H/O orthostatic hypotension
#H/O breast cancer s/p double mastectomy
DVT prophylaxis�subcu Lovenox
DNR
Updated daughter on phone 05/07
Total time spent to see the patient on the floor, examine the patient, review data and lab results, discuss treatment plan with patient, nursing staff around 42 minutes.
Physical Exam
General: No acute distress
HEENT: Normocephalic, Atraumatic, EOMI, MMM
Respiratory: Clear to Auscultation bilaterally
Cardiac: Normal S1/S2, Regular Rate and Rhythm
GI: Soft, Nontender, Nondistended, Normal Bowel Sounds
Extremities: No Clubbing, Cyanosis, or Edema
Neuro: Pleasantly confused
Psych: Calm, Cooperative
Anticipated Discharge: 24 - 48 hours
Subjective/Interval History
-
Date of Service: May 09, 2024
No acute events. Patient is slightly more verbal today. No fever, no vomiting.
Objective Data
-
Labs:
Laboratory Results
05/09/24
06:00
Sodium Pending
Potassium Pending
Chloride Pending
Carbon Dioxide Pending
BUN Pending
Creatinine Pending
Glucose Pending
Calcium Pending
Vital Signs:
Vital Signs
Temp Pulse Resp BP Pulse Ox
96.6 F L 54 18 131/56 97
05/09/24 07:10 05/09/24 07:10 05/09/24 07:10 05/09/24 07:10 05/09/24 07:10
I&O
05/08/24 05/09/24 05/10/24
06:59 06:59 06:59
Intake Total 100 / 100 860 / 860
Balance 100 / 100 860 / 860
[2024-05-09 10:21] LABS: Blood Urea Nitrogen 9 mg/dl (7-17); Calcium 9.1 mg/dl (8.4-10.2); Carbon Dioxide 29 mmol/L (22-30); Chloride 103 mmol/L (98-107); Estimated Creatinine Clearance 53 ml/min; Glucose 82 mg/dl (70-99); Magnesium 1.8 mg/dl (1.6-2.3); Phosphorus 3.5 mg/dl (2.5-4.5); Potassium 4.5 mmol/L (3.5-5.1); Sodium 139 mmol/L (135-145); eGFR > 60.00
--- NOTE | 2024-05-09 12:07 | CM ---
Addendum entered by Tami Delaney 05/09/24 14:19:
CM spoke with Dane from [facility], confirmed ability to accept patient for Hospice, requesting Hospice order faxed to [phone]. Per Dane, [facility] unable to accept over weekend, do not have nursing staff, hospice equipment to be
delivered Sunday to facility- can admit Sunday morning, requesting 10:00 a.m. transport if able. TT to Hospitalist with update. CM spoke to patients Charley eisenberg, aware of discharge plan for Sunday. Ambulance forms will be placed on chart.
Patient will require OOH DNR, will place on chart.
Plan; return to [facility] with [facility] 05/13/24, will require ambulance transport.
Original Note:
CM spoke with Dane from [facility], reports nurse practitioner will be out to assess patient today. Dane reports [facility] is unable to accept patient for return with Hospice until Sunday. CM spoke with patients Charley eisenberg, aware
of Hospice evaluations and discharge planning. CM met with Mena Nurse Practitioner from [facility], Mena will review with [facility] facility and will have an activities specialist contact CM. CM will update family once more information received
from [facility].
Plan; awaiting confirmation from [facility] to admit for Hospice care, likely return to [facility] with Hospice.
--- NOTE | 2024-05-09 14:12 | PN.CDI ---
CDI
- -
CDI:
Physician Documentation Request
Admit Date: 05/06/24 12:21
Dear Doctor Do,
Please review the following and provide your response in the progress notes.
Clinical Indicators:
Pt admitted with fever/Upper respiratory infection /RSV
Documented per H&P, ' Started empiric Ceftriaxone/Doxycycline to cover community acquired pneumonia given persistent fever....'
Progress notes 05/06-05/09,' Procalcitonin elevated at 0.78, continue Rocephin/doxycycline for superinfection coverage...'
Urine culture shows ECOLI
Please provide a suspected diagnosis for the above superinfection /ABX use:
Pneumonia ( please provide type if known )
UTI
Pneumonia -(please provide type if known)/UTI
Other ( please specify)
Use of terms such as suspected, likely, concern for, or probable (associated with a specific diagnosis that is being evaluated, monitored, or treated as if it exists) are acceptable and can be coded in the inpatient setting, when documented at the
time of discharge.
Thank you,
Roxanna Mckinney RN
CDI Specialist
[facility]
Please use your independent medical judgment in providing your response.
[2024-05-09 15:10] VITALS: BP 90/67
[2024-05-09] MEDS: LOVENOX 40 MG SC (17:29)
[2024-05-09 23:39] VITALS: BP 155/124
[2024-05-10 07:10] VITALS: BP 125/72
--- NOTE | 2024-05-10 07:16 | W.PN.HOSP.TC ---
Today's Communication/Plan
-
Discharge back to facility on hospice Sunday
Assessment / Plan
Assessment / Plan
#Fever
#Acute RSV upper respiratory infection
-Presented from nursing facility with fever; mention to have URI symptoms; flu and COVID testing negative
-Noted to have reduced oral intake recently as well; 101.5 �F in ED
-No leukocytosis; did not meet SIRS criteria, low suspicion for sepsis
-Chest x-ray unremarkable, UA was without signs of infection
-Procalcitonin elevated at 0.78, s/p Rocephin/doxycycline x 5 days for bacterial superinfection coverage
-Continue supportive care
-Discharge back to facility under hospice on Sunday. They do not have the staff to take her back over the weekend.
#Possible urinary tract infection
05/03/2024 urine culture growing greater than 100,000 colonies of E. coli, pansensitive
Covered with antibiotics as above
Poor oral intake
-Oral intake has improved, nursing staff reports patient is eating more than half of her meals
#Lethargy/TME
-Suspect that this is secondary to underlying infection as above
-Continue to monitor MSE for improvement
-Unclear what her mental baseline is
#Advanced dementia
-Presented from dementia unit; unclear what mental baseline is
-Seen by [facility], who recommends pur�ed diet with thin liquids
-Hospice consulted. Discharge back to facility under hospice on Sunday.
#Right hand edema
Right upper extremity Dopplers negative for DVT
#H/O bradycardia s/p PPM
#H/O orthostatic hypotension
#H/O breast cancer s/p double mastectomy
DVT prophylaxis�subcu Lovenox
DNR
Updated daughter on phone 05/07
Total time spent to see the patient on the floor, examine the patient, review data and lab results, discuss treatment plan with patient, nursing staff around 40 minutes.
Physical Exam
General: No acute distress
HEENT: Normocephalic, Atraumatic, EOMI, MMM
Respiratory: Clear to Auscultation bilaterally
Cardiac: Normal S1/S2, Regular Rate and Rhythm
GI: Soft, Nontender, Nondistended, Normal Bowel Sounds
Extremities: No Clubbing, Cyanosis, or Edema
Neuro: Pleasantly confused
Psych: Calm, Cooperative
Anticipated Discharge: 24 - 48 hours
Subjective/Interval History
-
Date of Service: May 10, 2024
No acute changes. Patient is eating 50% of most of her meals. No fever, no vomiting.
Objective Data
-
Vital Signs:
Vital Signs
Temp Pulse Resp BP Pulse Ox
97.4 F 62 18 155/124 95
05/09/24 23:39 05/09/24 23:39 05/09/24 23:39 05/09/24 23:39 05/09/24 23:39
I&O
05/09/24 05/10/24 05/11/24
06:59 06:59 06:59
Intake Total 860 / 860
Balance 860 / 860
[2024-05-10 15:33] VITALS: BP 132/60
[2024-05-10] MEDS: NSS with KCL 20 MEQ 1000 IV (15:38)
[2024-05-10] MEDS: LOVENOX SC (17:13)
[2024-05-10 23:55] VITALS: BP 137/60
[2024-05-11 07:10] VITALS: BP 135/86
--- NOTE | 2024-05-11 08:20 | W.PN.HOSP.TC ---
Today's Communication/Plan
-
Discharge back to facility on hospice tomorrow
Assessment / Plan
Assessment / Plan
#Fever
#Acute RSV upper respiratory infection
-Presented from nursing facility with fever; mention to have URI symptoms; flu and COVID testing negative
-Noted to have reduced oral intake recently as well; 101.5 �F in ED
-No leukocytosis; did not meet SIRS criteria, low suspicion for sepsis
-Chest x-ray unremarkable, UA was without signs of infection
-Procalcitonin elevated at 0.78, s/p Rocephin/doxycycline x 5 days for bacterial superinfection coverage
-Continue supportive care
-Discharge back to facility under hospice on Sunday. They do not have the staff to take her back over the weekend.
#Possible urinary tract infection
05/03/2024 urine culture growing greater than 100,000 colonies of E. coli, pansensitive
Covered with antibiotics as above
Poor oral intake
-Oral intake has improved, nursing staff reports patient is eating more than half of her meals
#Lethargy/TME
-Suspect that this is secondary to underlying infection as above
-Continue to monitor MSE for improvement
-Unclear what her mental baseline is
#Advanced dementia
-Presented from dementia unit; unclear what mental baseline is
-Seen by [facility], who recommends pur�ed diet with thin liquids
-Hospice consulted. Discharge back to facility under hospice on Sunday.
#Right hand edema
Right upper extremity Dopplers negative for DVT
#H/O bradycardia s/p PPM
#H/O orthostatic hypotension
#H/O breast cancer s/p double mastectomy
DVT prophylaxis�subcu Lovenox
DNR
Updated daughter on phone 05/07
Total time spent to see the patient on the floor, examine the patient, review data and lab results, discuss treatment plan with patient, nursing staff around 37 minutes.
Physical Exam
General: No acute distress
HEENT: Normocephalic, Atraumatic, EOMI, MMM
Respiratory: Clear to Auscultation bilaterally
Cardiac: Normal S1/S2, Regular Rate and Rhythm
GI: Soft, Nontender, Nondistended, Normal Bowel Sounds
Extremities: No Clubbing, Cyanosis, or Edema
Neuro: Pleasantly confused
Psych: Calm, Cooperative
Anticipated Discharge: Within 24 hours
Subjective/Interval History
-
Date of Service: May 11, 2024
No acute events. Patient is eating 50% of her meals. No fever, no vomiting.
Objective Data
-
Vital Signs:
Vital Signs
Temp Pulse Resp BP Pulse Ox
97.5 F 58 17 137/60 96
05/10/24 23:55 05/10/24 23:55 05/10/24 23:55 05/10/24 23:55 05/10/24 23:55
I&O
05/10/24 05/11/24 05/12/24
06:59 06:59 06:59
Intake Total 120 / 120
Balance 120 / 120
[2024-05-11 15:10] VITALS: BP 125/97
[2024-05-11] MEDS: LOVENOX 40 MG SC (17:27)
[2024-05-11 23:06] VITALS: BP 131/68
[2024-05-12 07:00] VITALS: BP 136/94
--- NOTE | 2024-05-12 09:04 | CM ---
Addendum entered by Tami Delaney 05/12/24 10:37:
OOH DNR signed by Physician, placed on chart.
Original Note:
CM reviewed chart, patient scheduled for 11:[address] to [facility]. Voicemail left for Britt Figueroa ([phone]) Director of Memory Care to update with transport time. CM spoke with patients daughterCharley,
updated with transport time. IMM verbally reviewed, agreeable to plan, placed in chart. CM will continue to follow for all discharge planning needs.
Plan; return to [facility] with [facility], 11:30 a.m. ambulance transpir
[facility]
--- NOTE | 2024-05-12 11:25 | W.PN.HOSP.TC ---
Today's Communication/Plan
-
Discharge back to facility on hospice
Assessment / Plan
Assessment / Plan
#Fever
#Acute RSV upper respiratory infection
-Presented from nursing facility with fever; mention to have URI symptoms; flu and COVID testing negative
-Noted to have reduced oral intake recently as well; 101.5 �F in ED
-No leukocytosis; did not meet SIRS criteria, low suspicion for sepsis
-Chest x-ray unremarkable, UA was without signs of infection
-Procalcitonin elevated at 0.78, s/p Rocephin/doxycycline x 5 days for bacterial superinfection coverage
-Continue supportive care
-Discharge back to facility under hospice today.
#Possible urinary tract infection
05/03/2024 urine culture growing greater than 100,000 colonies of E. coli, pansensitive
Covered with antibiotics as above
Poor oral intake
-Oral intake has improved, nursing staff reports patient is eating more than half of her meals
#Lethargy/TME
-Suspect that this is secondary to underlying infection as above
-Continue to monitor MSE for improvement
-Unclear what her mental baseline is
#Advanced dementia
-Presented from dementia unit; unclear what mental baseline is
-Seen by [facility], who recommends pur�ed diet with thin liquids
-Hospice consulted. Discharge back to facility under hospice on Sunday.
#Right hand edema
Right upper extremity Dopplers negative for DVT
#H/O bradycardia s/p PPM
#H/O orthostatic hypotension
#H/O breast cancer s/p double mastectomy
DVT prophylaxis�subcu Lovenox
DNR
Updated daughter on phone 05/07
Anticipated Discharge: Today
Subjective/Interval History
-
Date of Service: May 12, 2024
Seen and examined at the bedside. No acute events reported overnight. AFVSS this morning
Plan for discharge back to facility for hospice care
History limited from advanced dementia
Objective Data
-
Vital Signs:
Vital Signs
Temp Pulse Resp BP Pulse Ox
98.1 F 61 20 136/94 99
05/12/24 07:00 05/12/24 07:00 05/12/24 07:00 05/12/24 07:00 05/12/24 07:00
I&O
05/11/24 05/12/24 05/13/24
06:59 06:59 06:59
Intake Total 120 / 120 740 / 740
Balance 120 / 120 740 / 740
Review of Systems
-
Unable to obtain full review of systems at this time due to: Dementia
Physical Exam
-
General: Well Developed, No Apparent Distress, Comfortable and Cachectic
HEENT: Normocephalic, Atraumatic and Moist Mucous Membranes
Respiratory: Clear to Auscultation and Non Labored Respirations
Cardiac: Regular Rhythm and S1/S2; Negative Murmur, Rub or Gallop
GI: Soft, Nontender, Nondistended and Normal Bowel Sounds
Musculoskeletal: No Clubbing, No Cyanosis and No Edema
Skin: Warm and Dry; Negative Rash
Neuro: Nonfocal/Grossly Intact and Other (Advanced dementia, AAOx1)
Psych: Calm
[2024-05-12 11:28] VITALS: BP 150/60
--- NOTE | 2024-05-13 15:12 | W.DCSUMMARY ---
Discharge Summary
Discharge Data
Date of Admission: 05/06/24
Date of Discharge: 05/12/24
-
Pending Results: No
Hospital Course
83-year-old female with advanced dementia, status post permanent pacemaker, history of breast cancer s/p double mastectomy that presented to the hospital with fever and upper respiratory symptoms. Infectious workup negative for bacterial
etiologies. Flu and COVID testing were negative however RSV was positive. Was temporarily treated with IV antibiotics. Goals of care discussion had with family and hospice was consulted due to her advanced dementia and minimal independence with
ADLs. Was ultimately discharged back to her living facility on home hospice. Comfort based medications to be implemented once formally signed on the hospice care
Discharge Plan
-
Patient Disposition: Home (Routine Discharge)
Discharge Diagnosis/Procedures: Acute RSV infection, progressive dementia, poor oral intake, dysphagia
Condition: Serious
Diet: Other diet
Additional Diets: Pur�ed diet with thin liquids
Activity: As tolerated
Other Services: Hospice
Referrals:
Major Do DO [Family Provider] - in one week
Additional Discharge Medication Instructions: Comfort meds per Hospice service
Discharge Orders:
Discharge Patient (As Directed); Ordered 05/12/24
Ordered By: Alexandro Fregoso
Discharge Date and Time
Discharge Date/Time: 05/12/24 12:42
Print Language: INDIAN
== END 2024-05-12 12:42 | DRG 865 ==
LOC: 4 WEST ACU 12:21
PROVIDERS: Emergency Medicine; Family Medicine; ADMITTING PHYSICIAN Hospitalist; ATTENDING PHYSICIAN Internal Medicine; EMERGENCY PHYSICIAN Emergency Medicine; FAMILY PHYSICIAN Internal Medicine Geriatric Medicine
DX: B33.8 Other specified viral diseases (principal); G92.8 Other toxic encephalopathy; N39.0 Urinary tract infection, site not specified; Z68.1 Body mass index [BMI] 19.9 or less, adult; R64 Cachexia; B97.4 Respiratory syncytial virus as the cause of diseases classified elsewhere; Z11.52 Encounter for screening for COVID-19; Z66 Do not resuscitate; F03.90 Unspecified dementia, unspecified severity, without behavioral disturbance, psychotic disturbance, mood disturbance, and anxiety; J06.9 Acute upper respiratory infection, unspecified
CPT/HCPCS: 51701; 71046; 80048; 80053; 81003; 81015; 83605; 83735; 84100; 84145; 85025; 87040; 87070; 87077; 87086; 87186; 87502; 87807; 87811; 92526; 92610; 93971; 96360; 97163; 97167; 99285; J3480